=== PATIENT | female | born 1980 | race American Indian/Alaskan Native ===

== ENCOUNTER 2021-10-05 18:59 | Inpatient (IN) | payer SELFPAY ==
[2021-10-05] MEDS ORDERED: ASPIRIN 325 MG TAB PO ONE (19:49)
--- NOTE | 2021-10-05 20:17 | XRay Report ---
CHEST 2 VIEWS INDICATION / CLINICAL INFORMATION: CHEST PAIN. COMPARISON: None available. FINDINGS: SUPPORT DEVICES: None. HEART / MEDIASTINUM: No significant abnormality. LUNGS / PLEURA: No significant pulmonary or pleural abnormality. No pneumothorax. ADDITIONAL FINDINGS: No significant additional findings. IMPRESSION: 1. No acute findings. Signer Name: Aditya Aguilar MD Signed: 10/05/2021 8:13 PM Workstation Name: [id number]
[2021-10-05 20:19] LABS: Basophils # (Auto) 0.1 K/mm3 (0.0-0.1); Basophils % (Auto) 0.8 % (0.0-1.8); Eosinophils # (Auto) 0.1 K/mm3 (0.0-0.4); Eosinophils % (Auto) 1.9 % (0.0-4.3); Hematocrit 36.3 % (30.3-42.9); Hemoglobin 11.8 gm/dl (10.1-14.3); Lymphocytes # (Auto) 1.4 K/mm3 (1.2-5.4); Lymphocytes % (Auto) 20.5 % (13.4-35.0); Mean Corpuscular HGB Conc 33 % (30-34); Mean Corpuscular Volume 84 fl (79-97); Monocytes # (Auto) 0.5 K/mm3 (0.0-0.8); Monocytes % (Auto) 6.6 % (0.0-7.3); Platelet Count 222 K/mm3 (140-440); Red Blood Count 4.34 M/mm3 (3.65-5.03); Red Cell Distribution Width 13.8 % (13.2-15.2)
[2021-10-05 20:36] LABS: Alanine Aminotransferase 8 units/L (7-56); Albumin 4.1 g/dL (3.9-5); Blood Urea Nitrogen 12 mg/dL (7-17); Calcium 9.1 mg/dL (8.4-10.2); Hemolysis Index 6
[2021-10-05 20:53] LABS: BUN/Creatinine Ratio 17
[2021-10-06] MEDS ORDERED: ONDANSETRON 4 MG/2 ML INJ IV ONE (02:19)
[2021-10-06] MEDS ORDERED: MORPHINE 4 MG/1 ML INJ IV ONE (02:19)
--- NOTE | 2021-10-06 02:24 | Emergency Department Report ---
<JIMCHUY ZAPATA - Last Filed: 10/06/21 03:21> ED Chest Pain HPI - General Chief Complaint: Chest Pain Stated Complaint: CP/NAUSEA/SOB/HP Source: patient Mode of arrival: Ambulatory Limitations: No Limitations - History of Present Illness Initial Comments: Patient is a 41-year-old -Chinese female with a history of morbid obesity, hypertension and CHF who is not on medications presents to the ED with complaint of acute onset persistent shortness of breath at rest, left-sided chest pain that has been intermittent and persistent and that radiates to the mid posterior thoracic area with diaphoresis, nausea and vomiting for the last 3 days. Patient states that initially the pain and the symptoms were intermittent and mild but in the last 24 hours the symptoms have been more persistent and more frequent in occurrence. Patient states that she has not been evaluated by a geotechnical laboratory technician in over 2 years and that when she ran out of her medications, which she could not remember, she never went back to be evaluated and to have her medication renewed. Patient denies dizziness, syncope, fever, chills, cough, sore throat, neck pain, low back pain, abdominal pain and diarrhea, heavy lifting, fall or traumatic injury. MD Complaint: chest pain (Left-sided chest pain radiating to mid posterior thoracic area), other (Shortness of breath) -: Sudden, days(s) (3) Onset: during rest, during exertion Pain Location: left chest Pain Radiation: back (Mid posterior thoracic area) Severity: severe Severity scale (0 -10): 7 Quality: tightness, aching, pressure Consistency: intermittent Improves With: nothing Worsens With: nothing re: nausea, vomting, diaphoresis, dyspnea Other Symptoms: palpitations. denies: cough, fever, syncope, rash, acid taste in mouth, leg swelling, burping, other Treatments Prior to Arrival: aspirin Aspirin use within the Past 7 Days: (1) Yes - Related Data On Oral Contraceptives: No Previous Rx's Medication Instructions Recorded Last Taken Type AtorvaSTATin [Lipitor] 40 mg PO QHS #30 tablet 10/08/21 Unknown Rx Lisinopril/Hydrochlorothiazide 1 each PO DAILY #30 10/08/21 Unknown Rx [Zestoretic 10-12.5 mg Tablet] Pantoprazole [Protonix TAB] 40 mg PO QDAY #30 tablet 10/08/21 Unknown Rx Allergies Allergy/AdvReac Type Severity Reaction Status Date / Time No Known Allergies Allergy Verified 02/15/14 09:57 Heart Score - HEART Score History: Moderately suspicious EKG: Non-specific Age: < 45 Risk factors: > 3 risk factors or hx of atherosclerotic disease Troponin: < normal limit HEART Score: 4 - EKG Read Time Time EKG Completed: 19:11 EKG Read Time: 19:15 - Critical Actions Critical Actions: 4-6 pts:12-16.6% risk of adverse cardiac event. Should be admitted ED Past Medical Hx - Past Medical History Previous Medical History?: Yes Hx Hypertension: Yes Hx Congestive Heart Failure: Yes Hx Psychiatric Treatment: No Additional medical history: "enlarged heart" - Surgical History Additional Surgical History: c sections x 3 - Social History Substance Use Type: Alcohol - Medications Home Medications: Home Medications Medication Instructions Recorded Confirmed Last Taken Type AtorvaSTATin [Lipitor] 40 mg PO QHS #30 tablet 10/08/21 Unknown Rx Lisinopril/Hydrochlorothiazide 1 each PO DAILY #30 10/08/21 Unknown Rx [Zestoretic 10-12.5 mg Tablet] Pantoprazole [Protonix TAB] 40 mg PO QDAY #30 tablet 10/08/21 Unknown Rx ED Physical Exam - General Limitations: No Limitations General appearance: alert, in no apparent distress - Head Head exam: Present: atraumatic, normocephalic, normal inspection - Eye Eye exam: Present: normal appearance, PERRL, EOMI Pupils: Present: normal accommodation - ENT ENT exam: Present: normal exam, normal orophraynx, mucous membranes moist, TM's normal bilaterally, normal external ear exam - Neck Neck exam: Present: normal inspection, full ROM. Absent: tenderness - Respiratory Respiratory exam: Present: normal lung sounds bilaterally. Absent: respiratory distress, wheezes, rales, stridor, chest wall tenderness, accessory muscle use, prolonged expiratory, other - Cardiovascular Cardiovascular Exam: Present: normal rhythm, bradycardia, normal heart sounds. Absent: systolic murmur, diastolic murmur, rubs, gallop - GI/Abdominal GI/Abdominal exam: Present: soft, normal bowel sounds. Absent: tenderness, rebound, hyperactive bowel sounds, hypoactive bowel sounds, organomegaly, mass - Extremities Exam Extremities exam: Present: normal inspection, full ROM, normal capillary refill. Absent: tenderness - Back Exam Back exam: Present: normal inspection, full ROM. Absent: tenderness, CVA tenderness (R), CVA tenderness (L), muscle spasm, paraspinal tenderness - Neurological Exam Neurological exam: Present: alert, oriented X3, CN II-XII intact, normal gait, reflexes normal - Psychiatric Psychiatric exam: Present: normal affect, normal mood - Skin Skin exam: Present: warm, dry, intact, normal color. Absent: rash ROBERT score - Robert Score Age > 65: (0) No Aspirin use within the Past 7 Days: (1) Yes 3 or more CAD Risk Factors: (1) Yes 2 or more Angina events in past 24 hrs: (1) Yes Known CAD with more than 50% Stenosis: (0) No Elevated Cardiac Markers: (0) No ST Deviation Greater than 0.5mm: (0) No ROBERT Score: 3 ED Medical Decision Making - Lab Data Result diagrams: 10/05/21 19:53 10/05/21 19:53 - EKG Data EKG shows normal: sinus rhythm Rate: normal - EKG Data Interpretation: normal EKG 10/06/21 02:26 The EKG shows sinus bradycardia with a ventricular rate of [address] or T wave abnormalities. - Radiology Data Radiology results: report reviewed [facility] [address] [place] [address] XRay Report Signed Patient: JIA RUBALCAVA MR#: [id number] : 1980 Acct:[id number] Age/Sex: 41 / F ADM Date: 10/05/21 Loc: ED Attending Dr: Ordering Physician: ED MD [facility] Date of Service: 10/05/21 Procedure(s): XR chest routine 2V Accession Number(s): [id number] cc: ED MD [facility] Fluoro Time In Minutes: CHEST 2 VIEWS INDICATION / CLINICAL INFORMATION: CHEST PAIN. COMPARISON: None available. FINDINGS: SUPPORT DEVICES: None. HEART / MEDIASTINUM: No significant abnormality. LUNGS / PLEURA: No significant pulmonary or pleural abnormality. No pneumothorax. ADDITIONAL FINDINGS: No significant additional findings. IMPRESSION: 1. No acute findings. Signer Name: Aditya Aguilar MD Signed: 10/05/2021 8:13 PM Workstation Name: [id number] Transcribed By: FAREED Dictated By: AMARILIS AGUILAR MD Electronically Authenticated By: AMARILIS AGUILAR MD Signed Date/Time: 10/05/212012 DD/ 12 TD/TT: - Medical Decision Making This is a 41-year-old -Chinese female with a history of morbid obesity, hypertension and CHF who is not on medications presents to the ED with complaint of acute onset persistent shortness of breath at rest, left-sided chest pain that has been intermittent and persistent and that radiates to the mid posterior thoracic area with diaphoresis, nausea and vomiting for the last 3 days. Patient states that initially the pain and the symptoms were intermittent and mild but in the last 24 hours the symptoms have been more persistent and more frequent in occurrence. Patient states that she has not been evaluated by a geotechnical laboratory technician in over 2 years and that when she ran out of her medications, which she could not remember, she never went back to be evaluated and to have her medication renewed. In the ED, patient is alert and oriented x3 and is not in any distress. EKG shows sinus bradycardia rhythm with a ventricular rate of 50 bpm. Chest x-ray shows no acute cardiopulmonary abnormalities or pneumonitis. Lab test results were reviewed and are all nonactionable. Patient has score is 4 and a ROBERT of 3. Patient is noncompliant with medications and has not been able to be evaluated by her geotechnical laboratory technician in over 2 years despite history of CHF diagnosis. I paged and discussed the patient's case with the hospitalist physician Dr. Salcedo who admitted the patient to the hospital. Patient was admitt ed to the hospital for further chest pain rule out given her noncompliance. - Differential Diagnosis CHF; ACS; Pneumonia; dissection; anxiety; GERD; costochondritis ED Disposition Clinical Impression: Intermittent left-sided chest pain Acute exacerbation of CHF (congestive heart failure) Qualifiers: Heart failure type: unspecified Qualified Code(s): I50.9 - Heart failure, unspecified Disposition: ADMITTED INPATIENT Is pt being admited?: No Does the pt Need Aspirin: No Condition: Stable Time of Disposition: 02:28 <MICHELLE DEL RIO - Last Filed: 10/09/21 16:16> ED Review of Systems ROS: Stated complaint: CP/NAUSEA/SOB/HP Other details as noted in HPI ED Course Vital Signs 10/05/21 10/06/21 19:20 07:31 Temperature 99.0 F Pulse Rate 55 L 47 L Pulse Rate [ 44 L From Monitor] Respiratory 18 Rate Blood Pressure 176/102 O2 Sat by Pulse 100 100 Oximetry ED Medical Decision Making - Lab Data Result diagrams: 10/06/21 05:30 10/06/21 05:30 Critical care attestation.: If time is entered above; I have spent that time in minutes in the direct care of this critically ill patient, excluding procedure time. ED Disposition Is pt being admited?: Yes
[2021-10-06] MEDS ORDERED: MORPHINE 2 MG/1 ML INJ IV PRN (03:22)
[2021-10-06] MEDS ORDERED: ONDANSETRON 4 MG/2 ML INJ IV PRN (03:22)
[2021-10-06] MEDS ORDERED: ACETAMINOPHEN 325 MG TAB PO PRN ×2 (03:22→05:03)
[2021-10-06] MEDS ORDERED: NITROGLYCERIN 0.4 MG TAB SUBL SL PRN (05:03)
[2021-10-06] MEDS ORDERED: MORPHINE 4 MG/1 ML INJ IV PRN (05:03)
[2021-10-06] MEDS ORDERED: traMADol 50 MG TAB PO PRN (05:03)
--- NOTE | 2021-10-06 05:13 | History and Physical Report ---
History of Present Illness Date of examination: 10/06/21 Date of admission: 10/06/21 Chief complaint: Chest pain Shortness of breath History of present illness: 41-year-old female with history of hypertension and CHF, obesity who is not on medications was brought to the emergency room because of shortness of breath at rest, left-sided chest pain that has been intermittent and persistent and that radiates to the mid posterior thoracic area with diaphoresis, nausea and vomiting for the last 3 days. Patient states that initially the pain and the symptoms were intermittent and mild but in the last 24 hours the symptoms have been more persistent and more frequent in occurrence. Patient states that she has not been evaluated by a gold miner in over 2 years and that when she ran out of her medications, In the emergency room initial cardiac enzyme is negative troponin is 0.010. But patient BNP is 137.2. She will going to admit the patient and put the patient on chest pain as well as congestive heart failure pathway Past History Past Medical History: heart failure, hypertension, other (Enlarged her) Past Surgical History: Other ( x3) Social history: alcohol abuse Family history: hypertension Medications and Allergies Allergies Allergy/AdvReac Type Severity Reaction Status Date / Time No Known Allergies Allergy Verified 02/15/14 09:57 Home Medications Medication Instructions Recorded Confirmed Last Taken Type No Known Home Medications [No 02/16/14 02/16/14 Unknown History Reported Home Medications] Active Meds: Active Medications Acetaminophen (Acetaminophen 325 Mg Tab) 650 mg PO Q4H PRN PRN Reason: Pain MILD(1-3)/Fever >100.5/BECKER Morphine Sulfate (Morphine 2 Mg/1 Ml Inj) 2 mg IV Q4H PRN PRN Reason: Pain, Moderate (4-6) Ondansetron HCl (Ondansetron 4 Mg/2 Ml Inj) 4 mg IV Q8H PRN PRN Reason: Nausea And Vomiting Sodium Chloride (Sodium Chloride 0.9% 10 Ml Flush Syringe) 10 ml IV BID DUGLAS Review of Systems All systems: negative Cardiovascular: chest pain, orthopnea, shortness of breath, dyspnea on exertion, paroxysmal nocturnal dyspnea Gastrointestinal: nausea, vomiting Exam - Constitutional Vitals: Temp Pulse Resp BP Pulse Ox 99.0 F 55 L 18 176/102 100 10/05/21 19:20 10/05/21 19:20 10/05/21 19:20 10/05/21 19:20 10/05/21 19:20 General appearance: Present: no acute distress, well-nourished - EENT Eyes: Present: PERRL ENT: hearing intact, clear oral mucosa - Neck Neck: Present: supple, normal ROM - Respiratory Respiratory effort: normal Respiratory: bilateral: diminished - Cardiovascular Heart Sounds: Present: S1 & S2. Absent: rub, click - Extremities Extremities: pulses symmetrical, No edema Peripheral Pulses: within normal limits - Abdominal General gastrointestinal: Present: soft, non-tender, non-distended, normal bowel sounds Female genitourinary: Present: normal - Integumentary Integumentary: Present: clear, warm, dry - Musculoskeletal Musculoskeletal: gait normal, strength equal bilaterally - Psychiatric Psychiatric: appropriate mood/affect, intact judgment & insight - Neurologic Neurologic: CNII-XII intact, moves all extremities HEART Score - HEART Score EKG: Non-specific Age: < 45 Risk factors: > 3 risk factors or hx of atherosclerotic disease Troponin: Troponin T < 0.010 ng/mL (0.00-0.029) 10/06/21 01:51 Troponin: < normal limit - Critical Actions Critical Actions: 4-6 pts:12-16.6% risk of adverse cardiac event. Should be admi tted Results - Labs CBC & Chem 7: 10/05/21 19:53 10/05/21 19:53 Labs: Laboratory Last Values WBC 7.0 K/mm3 (4.5-11.0) 10/05/21 19:53 RBC 4.34 M/mm3 (3.65-5.03) 10/05/21 19:53 Hgb 11.8 gm/dl (10.1-14.3) 10/05/21 19:53 Hct 36.3 % (30.3-42.9) 10/05/21 19:53 MCV 84 fl (79-97) 10/05/21 19:53 MCH 27 pg (28-32) L 10/05/21 19:53 MCHC 33 % (30-34) 10/05/21 19:53 RDW 13.8 % (13.2-15.2) 10/05/21 19:53 Plt Count 222 K/mm3 (140-440) 10/05/21 19:53 Lymph % (Auto) 20.5 % (13.4-35.0) 10/05/21 19:53 [place] % (Auto) 6.6 % (0.0-7.3) 10/05/21 19:53 Eos % (Auto) 1.9 % (0.0-4.3) 10/05/21 19:53 Baso % (Auto) 0.8 % (0.0-1.8) 10/05/21 19:53 Lymph # (Auto) 1.4 K/mm3 (1.2-5.4) 10/05/21 19:53 [place] # (Auto) 0.5 K/mm3 (0.0-0.8) 10/05/21 19:53 Eos # (Auto) 0.1 K/mm3 (0.0-0.4) 10/05/21 19:53 Baso # (Auto) 0.1 K/mm3 (0.0-0.1) 10/05/21 19:53 Seg Neutrophils % 70.2 % (40.0-70.0) H 10/05/21 19:53 Seg Neutrophils # 4.9 K/mm3 (1.8-7.7) 10/05/21 19:53 Sodium 136 mmol/L (137-145) L 10/05/21 19:53 Potassium 3.8 mmol/L (3.6-5.0) 10/05/21 19:53 Chloride 102.5 mmol/L (98-107) 10/05/21 19:53 Carbon Dioxide 24 mmol/L (22-30) 10/05/21 19:53 Anion Gap 13 mmol/L 10/05/21 19:53 BUN 12 mg/dL (7-17) 10/05/21 19:53 Creatinine 0.7 mg/dL (0.6-1.2) 10/05/21 19:53 Estimated GFR > 60 ml/min 10/05/21 19:53 BUN/Creatinine Ratio 17 % 10/05/21 19:53 Glucose 102 mg/dL (65-100) H 10/05/21 19:53 Calcium 9.1 mg/dL (8.4-10.2) 10/05/21 19:53 Total Bilirubin 0.60 mg/dL (0.1-1.2) 10/05/21 19:53 AST 20 units/L (5-40) 10/05/21 19:53 ALT 8 units/L (7-56) 10/05/21 19:53 Alkaline Phosphatase 76 units/L (35-129) 10/05/21 19:53 Troponin T < 0.010 ng/mL (0.00-0.029) 10/06/21 01:51 NT-Pro-B Natriuret Pep 137.2 pg/mL (0-450) 10/06/21 02:33 Total Protein 7.3 g/dL (6.3-8.2) 10/05/21 19:53 Albumin 4.1 g/dL (3.9-5) 10/05/21 19:53 Albumin/Globulin Ratio 1.3 % 10/05/21 19:53 - Imaging and Cardiology Chest x-ray: report reviewed Assessment and Plan VTE prophylaxis?: Chemical Plan of care discussed with patient/family: Yes - Patient Problems (1) Acute exacerbation of CHF (congestive heart failure) Current Visit: Yes Status: Acute Qualifiers: Heart failure type: unspecified Qualified Code(s): I50.9 - Heart failure, unspecified Plan to address problem: Admit the patient to the medical telemetry. Cardiac diet. Fluid restriction. Maintain input output. Lasix 40 mg IV every 12 hours. Echocardiogram. Cardiology evaluation (2) Intermittent left-sided chest pain Current Visit: Yes Status: Acute Plan to address problem: Aspirin 325 mg p.o. daily. Lipitor 40 mg p.o. daily. We do the serial cardiac enzymes. Echocardiogram. Cardiology evaluation (3) Hypertension Current Visit: Yes Status: Acute Plan to address problem: Hydralazine 10 mg IV every 6 hours as needed. We continue the home medication (4) Orthopnea Current Visit: Yes Status: Acute Plan to address problem: Oxygen per nasal cannula 3 L/min. DuoNeb by nebulizer every 4 hours as needed. Fluid restriction. Maintain input output. Lasix 40 mg IV every 12 hours. Echocardiogram. Cardiology evaluation (5) Shortness of breath at rest Current Visit: Yes Status: Acute Plan to address problem: Oxygen per nasal cannula 3 L/min. DuoNeb by nebulizer every 4 hours as needed. Fluid restriction. Maintain input output. Lasix 40 mg IV every 12 hours. Echocardiogram. Cardiology evaluation (6) DVT prophylaxis Current Visit: Yes Status: Acute Plan to address problem: Heparin 5000 units subcu every 12 hours for DVT prophylaxis. Pepcid 20 mg p.o. twice daily for GI prophylaxis. Patient is a full code
[2021-10-06 06:01] LABS: Blood Urea Nitrogen 9 mg/dL (7-17); Hemolysis Index 4
[2021-10-06 06:04] LABS: BUN/Creatinine Ratio 15
[2021-10-06 06:23] LABS: Basophils % (Auto) 0.4 % (0.0-1.8); Eosinophils # (Auto) 0.1 K/mm3 (0.0-0.4); Eosinophils % (Auto) 2.2 % (0.0-4.3); Hematocrit 36.9 % (30.3-42.9); Hemoglobin 11.9 gm/dl (10.1-14.3); Lymphocytes # (Auto) 1.3 K/mm3 (1.2-5.4); Mean Corpuscular HGB Conc 32 % (30-34); Mean Corpuscular Volume 85 fl (79-97); Monocytes # (Auto) 0.4 K/mm3 (0.0-0.8); Monocytes % (Auto) 7.3 % (0.0-7.3); Platelet Count 233 K/mm3 (140-440); Red Blood Count 4.37 M/mm3 (3.65-5.03)
--- NOTE | 2021-10-06 09:36 | Progress Note ---
Assessment and Plan Assessment and plan: --Acute exacerbation of CHF (congestive heart failure) Admit the patient to the medical telemetry. Cardiac diet. Fluid restriction. Maintain input output. Lasix 40 mg IV every 12 hours. Echocardiogram. Cardiology evaluation -- Intermittent left-sided chest pain Aspirin 325 mg p.o. daily. Lipitor 40 mg p.o. daily. Serial cardiac enzyme and EKG echocardiogram. LV function ejection fraction Cardiology evaluation --Bradycardia; symptomatic heart rate in 40s Denies chest pain, denies dizziness or lightheadedness Patient is not on any AV wyatt blocking medications Closely monitor closely monitor --Hypertension; controlled Continue current antihypertensives and as needed medications --Orthopnea Continue diuretics , input output monitoring , oxygen titrate O2 sats to more t yo 90% Cardiology following , follow echocardiogram for LV function ejection fraction --Shortness of breath at rest Oxygen per nasal cannula 3 L/min. DuoNeb by nebulizer every 4 hours as needed. Fluid restriction. Maintain input output. Lasix 40 mg IV every 12 hours. Echocardiogram. Cardiology evaluation -Morbidly obese; BMI 41.1 Advised diet modification, exercise as tolerated Weight reduction when you are medically stable May benefit from bariatric surgical weight reduction -DVT prophylaxis Heparin 5000 units subcu every 12 hours for DVT prophylaxis. Pepcid 20 mg p.o. twice daily for GI prophylaxis. --full CODE STATUS We will closely monitor the patient and adjust management as needed, Plan of care reviewed with the patient and her nurse Prolonged care inpatient ; 35 minutes Advance care planning; +35 Discussed with patient her condition, I discussed with the patient her tests and reports I discussed with the patient her diagnosis, informed the patient prognosis Also discussed with the patient that cardiology would evaluate her, treatment plan discussed Risks and complications discussed extensively and answered their questions Consultations and their recommendations discussed with the patient, family discharge plan when patient is medically stable was discussed She had some questions answered all of them Advance care plan total time 35 minutes History Interval history: I have seen and examined the patient at the bedside Patient's chart and medications reviewed Patient feels better complains of mild shortness of breath and nausea Vital signs reviewed Hospitalist Physical - Constitutional Vitals: Temp Pulse Resp BP Pulse Ox 97.2 F L 88 16 128/86 98 10/06/21 08:13 10/06/21 08:13 10/06/21 08:13 10/06/21 08:13 10/06/21 08:13 General appearance: Present: no acute distress, well-nourished, obese (Morbidly obese) - EENT Eyes: Present: PERRL, EOM intact - Neck Neck: Present: supple, normal ROM - Respiratory Respiratory effort: normal Respiratory: bilateral: diminished, negative: rales, rhonchi, wheezing - Cardiovascular Rhythm: regular Heart Sounds: Present: S1 & S2 - Extremities Extremities: no ischemia, No edema - Abdominal General gastrointestinal: soft, non-tender, non-distended, normal bowel sounds - Integumentary Integumentary: Present: clear, warm - Psychiatric Psychiatric: appropriate mood/affect, cooperative - Neurologic Neurologic: CNII-XII intact, moves all extremities HEART Score - HEART Score EKG: Non-specific Age: < 45 Risk factors: > 3 risk factors or hx of atherosclerotic disease Troponin: Troponin T < 0.010 ng/mL (0.00-0.029) 10/06/21 01:51 Troponin: < normal limit - Critical Actions Critical Actions: 4-6 pts:12-16.6% risk of adverse cardiac event. Should be admitted Results - Labs CBC & Chem 7: 10/06/21 05:30 10/06/21 05:30 Labs: Laboratory Last Values WBC 5.9 K/mm3 (4.5-11.0) 10/06/21 05:30 RBC 4.37 M/mm3 (3.65-5.03) 10/06/21 05:30 Hgb 11.9 gm/dl (10.1-14.3) 10/06/21 05:30 Hct 36.9 % (30.3-42.9) 10/06/21 05:30 MCV 85 fl (79-97) 10/06/21 05:30 MCH 27 pg (28-32) L 10/06/21 05:30 MCHC 32 % (30-34) 10/06/21 05:30 RDW 14.0 % (13.2-15.2) 10/06/21 05:30 Plt Count 233 K/mm3 (140-440) 10/06/21 05:30 Lymph % (Auto) 22.0 % (13.4-35.0) 10/06/21 05:30 [place] % (Auto) 7.3 % (0.0-7.3) 10/06/21 05:30 Eos % (Auto) 2.2 % (0.0-4.3) 10/06/21 05:30 Baso % (Auto) 0.4 % (0.0-1.8) 10/06/21 05:30 Lymph # (Auto) 1.3 K/mm3 (1.2-5.4) 10/06/21 05:30 [place] # (Auto) 0.4 K/mm3 (0.0-0.8) 10/06/21 05:30 Eos # (Auto) 0.1 K/mm3 (0.0-0.4) 10/06/21 05:30 Baso # (Auto) 0.0 K/mm3 (0.0-0.1) 10/06/21 05:30 Seg Neutrophils % 68.1 % (40.0-70.0) 10/06/21 05:30 Seg Neutrophils # 4.0 K/mm3 (1.8-7.7) 10/06/21 05:30 Sodium 138 mmol/L (137-145) 10/06/21 05:30 Potassium 4.2 mmol/L (3.6-5.0) 10/06/21 05:30 Chloride 104.5 mmol/L (98-107) 10/06/21 05:30 Carbon Dioxide 25 mmol/L (22-30) 10/06/21 05:30 Anion Gap 13 mmol/L 10/06/21 05:30 BUN 9 mg/dL (7-17) 10/06/21 05:30 Creatinine 0.6 mg/dL (0.6-1.2) 10/06/21 05:30 Estimated GFR > 60 ml/min 10/06/21 05:30 BUN/Creatinine Ratio 15 % 10/06/21 05:30 Glucose 97 mg/dL (65-100) 10/06/21 05:30 Calcium 9.0 mg/dL (8.4-10.2) 10/06/21 05:30 Total Bilirubin 0.60 mg/dL (0.1-1.2) 10/05/21 19:53 AST 20 units/L (5-40) 10/05/21 19:53 ALT 8 units/L (7-56) 10/05/21 19:53 Alkaline Phosphatase 76 units/L (35-129) 10/05/21 19:53 Troponin T < 0.010 ng/mL (0.00-0.029) 10/06/21 01:51 NT-Pro-B Natriuret Pep 137.2 pg/mL (0-450) 10/06/21 02:33 Total Protein 7.3 g/dL (6.3-8.2) 10/05/21 19:53 Albumin 4.1 g/dL (3.9-5) 10/05/21 19:53 Albumin/Globulin Ratio 1.3 % 10/05/21 19:53 Active Medications - Current Medications Current Medications: Generic Name Dose Route Start Last Admin Trade Name Freq PRN Reason Stop Dose Admin Acetaminophen 650 mg 10/06/21 05:03 Acetaminophen 325 Mg Tab PO Q6H PRN Pain, Mild (1-3) Aspirin 325 mg 10/07/21 10:00 Aspirin Ec 325 Mg Tab PO QDAY [facility] Atorvastatin Calcium 40 mg 10/06/21 22:00 Atorvastatin 40 Mg Tab PO QHS [facility] Furosemide 40 mg 10/06/21 06:00 Furosemide 40 Mg/4 Ml Inj IV BID@0600,1800 [facility] Heparin Sodium (Porcine) 5,000 unit 10/06/21 10:00 Heparin 5,000 Unit/1 Ml Vial SUB-Q Q12HR [facility] Morphine Sulfate 2 mg 10/06/21 05:03 Morphine 4 Mg/1 Ml Inj IV Q5MIN PRN Chest Pain unrelieved by NTG Nitroglycerin 0.4 mg 10/06/21 05:03 Nitroglycerin 0.4 Mg Tab Subl SL Q5M PRN Chest Pain Ondansetron HCl 4 mg 10/06/21 03:22 Ondansetron 4 Mg/2 Ml Inj IV Q8H PRN Nausea And Vomiting Pantoprazole Sodium 40 mg 10/06/21 10:00 Pantoprazole 40 Mg Tab PO QDAY [facility] Sodium Chloride 10 ml 10/06/21 04:00 Sodium Chloride 0.9% 10 Ml Flush Syringe IV BID [facility] Sodium Chloride 10 ml 10/06/21 05:03 Sodium Chloride 0.9% 10 Ml Flush Syringe IV PRN PRN LINE FLUSH Tramadol HCl 50 mg 10/06/21 05:03 Tramadol 50 Mg Tab PO Q6H PRN Pain, Moderate (4-6)
[2021-10-06] MEDS: HEPARIN 5,000 UNIT/1 ML VIAL SUB-Q SCH ×2 (10:34→21:28)
[2021-10-06] MEDS: FUROSEMIDE 40 MG/4 ML INJ IV SCH ×2 (10:34→21:29)
[2021-10-06] MEDS: PANTOPRAZOLE 40 MG TAB PO SCH (10:36)
[2021-10-06] MEDS: KETOROLAC 30 MG/1 ML INJ IV PRN ×2 (10:49→21:28)
--- NOTE | 2021-10-06 11:23 | Electrocardiograph Report ---
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
--- NOTE | 2021-10-06 11:41 | Consultation ---
History of Present Illness Consult date: 10/06/21 Consult reason: shortness of breath History of present illness: The patient is a 41-year-old woman with a history of chronic hypertension, for which she takes no medicine and does not see a doctor on a routine basis. She also reports that in 2005, following a she was diagnosed with an "enlarged" heart, for which she took medicines and followed with a dry ice maker for about a year. Since then, she has had no further cardiac follow-up and reported no cardiac symptoms. She presented to the hospital at this time with several days of shortness of breath and atypical chest pain. Chest pain is nonexertional, and described as a shooting pain across the left side of the chest. In the emergency room she was found to be severely hypertensive 176/102. She was evaluated and referred for admission. EKG is a sinus bradycardia 50, otherwise normal ECG. Serial troponin levels x3 were normal. Chest x-ray showed borderline cardiomegaly, but clear lung powers with no interstitial edema. Past History Past Medical History: hypertension, other (History of poorly documented "enlarged" heart) Past Surgical History: Other ( x3) Social history: alcohol abuse Family history: hypertension Medications and Allergies Allergies Allergy/AdvReac Type Severity Reaction Status Date / Time No Known Allergies Allergy Verified 02/15/14 09:57 Home Medications Medication Instructions Recorded Confirmed Last Taken Type No Known Home Medications [No 02/16/14 02/16/14 Unknown History Reported Home Medications] Active Meds: Active Medications Acetaminophen (Acetaminophen 325 Mg Tab) 650 mg PO Q6H PRN PRN Reason: Pain, Mild (1-3) Aspirin (Aspirin Ec 325 Mg Tab) 325 mg PO QDAY [facility] Atorvastatin Calcium (Atorvastatin 40 Mg Tab) 40 mg PO QHS [facility] Furosemide (Furosemide 40 Mg/4 Ml Inj) 40 mg IV BID@0600,1800 [facility] Last Admin: 10/06/21 10:34 Dose: 40 mg Heparin Sodium (Porcine) (Heparin 5,000 Unit/1 Ml Vial) 5,000 unit SUB-Q Q12HR [facility] Last Admin: 10/06/21 10:34 Dose: 5,000 unit Ketorolac Tromethamine (Ketorolac 30 Mg/1 Ml Inj) 15 mg IV Q8H PRN PRN Reason: Pain , Severe (7-10) Stop: 10/11/21 10:59 Last Admin: 10/06/21 10:49 Dose: 15 mg Morphine Sulfate (Morphine 4 Mg/1 Ml Inj) 2 mg IV Q5MIN PRN PRN Reason: Chest Pain unrelieved by NTG Last Admin: 10/06/21 10:14 Dose: 2 mg Nitroglycerin (Nitroglycerin 0.4 Mg Tab Subl) 0.4 mg SL Q5M PRN PRN Reason: Chest Pain Ondansetron HCl (Ondansetron 4 Mg/2 Ml Inj) 4 mg IV Q8H PRN PRN Reason: Nausea And Vomiting Pantoprazole Sodium (Pantoprazole 40 Mg Tab) 40 mg PO QDAY [facility] Last Admin: 10/06/21 10:36 Dose: 40 mg Sodium Chloride (Sodium Chloride 0.9% 10 Ml Flush Syringe) 10 ml IV BID [facility] Last Admin: 10/06/21 10:50 Dose: 10 ml Sodium Chloride (Sodium Chloride 0.9% 10 Ml Flush Syringe) 10 ml IV PRN PRN PRN Reason: LINE FLUSH Tramadol HCl (Tramadol 50 Mg Tab) 50 mg PO Q6H PRN PRN Reason: Pain, Moderate (4-6) Review of Systems Cardiovascular: chest pain, shortness of breath, no orthopnea, no palpitations, no rapid/irregular heart beat, no edema, no syncope, no lightheadedness Physical Examination Vital Signs Temp Pulse Resp BP Pulse Ox 99.0 F 55 L 18 176/102 100 10/05/21 19:20 10/05/21 19:20 10/05/21 19:20 10/05/21 19:20 10/05/21 19:20 General appearance: no acute distress HEENT: Positive: PERRL Neck: Positive: neck supple Cardiac: Positive: Reg Rate and Rhythm Lungs: Positive: Decreased Breath Sounds Neuro: Positive: Grossly Intact Abdomen: Positive: Soft Female genitourinary: deferred Skin: Positive: Clear Extremities: Absent: edema Results 10/06/21 05:30 10/06/21 05:30 Cardiac Enzymes 10/05/21 Range/Units 19:53 AST 20 (5-40) units/L CBC 10/05/21 10/06/21 Range/Units 19:53 05:30 WBC 7.0 5.9 (4.5-11.0) K/mm3 RBC 4.34 4.37 (3.65-5.03) M/mm3 Hgb 11.8 11.9 (10.1-14.3) gm/dl Hct 36.3 36.9 (30.3-42.9) % Plt Count 222 233 (140-440) K/mm3 Lymph # (Auto) 1.4 1.3 (1.2-5.4) K/mm3 [place] # (Auto) 0.5 0.4 (0.0-0.8) K/mm3 Eos # (Auto) 0.1 0.1 (0.0-0.4) K/mm3 Baso # (Auto) 0.1 0.0 (0.0-0.1) K/mm3 Comprehensive Metabolic Panel 10/05/21 10/06/21 Range/Units 19:53 05:30 Sodium 136 L 138 (137-145) mmol/L Potassium 3.8 4.2 (3.6-5.0) mmol/L Chloride 102.5 104.5 (98-107) mmol/L Carbon Dioxide 24 25 (22-30) mmol/L BUN 12 9 (7-17) mg/dL Creatinine 0.7 0.6 (0.6-1.2) mg/dL Glucose 102 H 97 (65-100) mg/dL Calcium 9.1 9.0 (8.4-10.2) mg/dL AST 20 (5-40) units/L ALT 8 (7-56) units/L Alkaline Phosphatase 76 (35-129) units/L Total Protein 7.3 (6.3-8.2) g/dL Albumin 4.1 (3.9-5) g/dL EKG interpretations - Telemetry EKG Rhythm: Sinus Bradycardia (At 50, otherwise normal ECG) Assessment and Plan - Patient Problems (1) Shortness of breath Current Visit: Yes Status: Acute Plan to address problem: Patient admitted with atypical chest pain and shortness of breath. Most significant clinical finding at this time is uncontrolled hypertension. In addition to hypertension control, echocardiogram will be recommended for left ventricular function assessment. Further cardiac management will depend on clinical course.
[2021-10-07] MEDS: FUROSEMIDE 40 MG/4 ML INJ IV SCH ×2 (06:16→17:17)
[2021-10-07] MEDS: ASPIRIN EC 325 MG TAB PO SCH (09:23)
[2021-10-07] MEDS: PANTOPRAZOLE 40 MG TAB PO SCH (09:23)
[2021-10-07] MEDS: HEPARIN 5,000 UNIT/1 ML VIAL SUB-Q SCH ×2 (09:23→21:57)
--- NOTE | 2021-10-07 11:01 | Progress Note ---
Assessment and Plan - Patient Problems (1) Shortness of breath Current Visit: Yes Status: Acute Plan to address problem: Patient admitted with atypical chest pain and shortness of breath. Most significant clinical finding on presentation was uncontrolled hypertension. BP is now better controlled, but on no significant antihypertensive therapy. Echocardiogram shows normal left ventricular systolic function, ejection fraction 60%. We will order a predischarge stress test for cardiac chest pain assessment. Subjective Date of service: 10/07/21 Principal diagnosis: Chest pain and shortness of breath Interval history: Patient has no new cardiac complaints, and BP appears currently well controlled without significant antihypertensive therapy. Echocardiogram was completed shows normal left ventricular chamber size and systolic function with ejection fraction 60%. Objective Vital Signs Temp Pulse Resp BP BP Pulse Ox 10/07/21 07:27 98.0 F 64 16 119/79 99 10/07/21 05:08 97.9 F 56 L 18 124/70 98 10/07/21 00:28 97.6 F 58 L 16 123/72 100 10/06/21 20:19 97.7 F 55 L 16 126/75 100 10/06/21 19:31 98 10/06/21 16:00 98.5 F 49 L 18 108/72 100 10/06/21 13:34 56 L - Physical Examination General: No Apparent Distress HEENT: Positive: PERRL Neck: Positive: neck supple Cardiac: Positive: Reg Rate and Rhythm Lungs: Positive: Decreased Breath Sounds Neuro: Positive: Grossly Intact Abdomen: Positive: Soft Skin: Positive: Clear Extremities: Absent: edema
--- NOTE | 2021-10-07 15:33 | Progress Note ---
Assessment and Plan The patient is a 41-year-old woman with a history of chronic hypertension, for which she takes no medicine and does not see a doctor on a routine basis. She presented to the hospital at this time with several days of shortness of breath and atypical chest pain. In the emergency room she was found to be severely hypertensive 176/102. EKG is a sinus bradycardia 50, otherwise normal ECG. Serial troponin levels x3 were normal. Chest x-ray showed borderline cardiomegaly, 2D echo showed preserved EF with mild concentric ventricular hype rtrophy. A/P --Acute exacerbation of diastolic CHF (congestive heart failure) Admit the patient to the medical telemetry. Cardiac diet. Fluid restriction. Maintain input output. Lasix 40 mg IV every 12 hours. Echocardiogram showed preserved EF. Cardiology following -- Intermittent left-sided chest pain Aspirin 325 mg p.o. daily. Lipitor 40 mg p.o. daily. Serial cardiac enzyme and EKG echocardiogram. LV function ejection fraction Cardiology recommended stress test for tomorrow --Bradycardia; symptomatic heart rate in 40s Denies chest pain, denies dizziness or lightheadedness Patient is not on any AV wyatt blocking medications Closely monitor closely monitor --Hypertension; controlled Continue current antihypertensives and as needed medications --Orthopnea Continue diuretics , input output monitoring , oxygen titrate O2 sats to more th an 90% Cardiology following , follow echocardiogram for LV function ejection fraction --Shortness of breath at rest Oxygen per nasal cannula 3 L/min. DuoNeb by nebulizer every 4 hours as needed. Fluid restriction. Maintain input output. Lasix 40 mg IV every 12 hours. Echocardiogram. Cardiology evaluation -Morbidly obese; BMI 41.1 Advised diet modification, exercise as tolerated Weight reduction when you are medically stable May benefit from bariatric surgical weight reduction -DVT prophylaxis Heparin 5000 units subcu every 12 hours for DVT prophylaxis. Pepcid 20 mg p.o. twice daily for GI prophylaxis. --full CODE STATUS We will closely monitor the patient and adjust management as needed, Plan of care reviewed with the patient and her nurse cardiology ordered stress test for tomorrow Subjective Date of service: 10/07/21 Principal diagnosis: Chest pain and shortness of breath Interval history: Patient seen and examined. Medical records and medication list reviewed. No acute event overnight noted by the RN. Patient denies any difficulty breathing. Patient is tolerating diet. She complains of intermittent left-sided chest pain Discussed plan of care at bedside with patient. Objective - Exam Narrative Exam: GENERAL: well-developed and morbidly obese -[place] female lying on bed appeared to be in no discomfort. HEENT: Normocephalic. Atraumatic. No conjunctival congestion or icterus. Patient has moist mucous membranes. NECK: Supple. Trachea midline. CHEST/LUNGS: Clear to auscultated bilaterally, breathing nonlabored. No wheezes crackles or rhonchi. HEART/CARDIOVASCULAR: Regular in rate and rhythm. S1 and S2 positive. ABDOMEN: Abdomen is soft, nontender. Patient has normal bowel sounds. SKIN: There is no rash. Warm and dry. NEURO: No focal motor deficit. Follows command. MUSCULOSKELETAL: No joint effusion or tenderness. EXTRIMITY: No edema, no cyanosis or clubbing. PSYCH: Cooperative. - Constitutional Vitals: Vital Signs - 12hr 10/07/21 10/07/21 10/07/21 05:08 07:27 11:00 Temperature 97.9 F 98.0 F Pulse Rate 56 L 64 Respiratory 18 16 18 Rate Blood Pressure 119/79 Blood Pressure 124/70 [Right] O2 Sat by Pulse 98 99 99 Oximetry 10/07/21 13:46 Temperature 97.9 F Pulse Rate 72 Respiratory 18 Rate Blood Pressure 130/87 Blood Pressure [Right] O2 Sat by Pulse 100 Oximetry - Labs CBC & Chem 7: 10/06/21 05:30 10/06/21 05:30 HEART Score - HEART Score EKG: Non-specific Age: < 45 Risk factors: > 3 risk factors or hx of atherosclerotic disease Troponin: Troponin T < 0.010 ng/mL (0.00-0.029) 10/06/21 11:30 Troponin: < normal limit - Critical Actions Critical Actions: 4-6 pts:12-16.6% risk of adverse cardiac event. Should be admitted
[2021-10-07] MEDS: KETOROLAC 30 MG/1 ML INJ IV PRN (21:57)
[2021-10-08] MEDS: FUROSEMIDE 40 MG/4 ML INJ IV SCH (05:57)
[2021-10-08] MEDS ORDERED: REGADENOSON 0.4 MG/5 ML INJ IV ONE (07:19)
[2021-10-08 10:39] VITALS: BP 126/88
[2021-10-08] MEDS: PANTOPRAZOLE 40 MG TAB PO SCH (11:47)
[2021-10-08] MEDS: ASPIRIN EC 325 MG TAB PO SCH (11:47)
[2021-10-08] MEDS: HEPARIN 5,000 UNIT/1 ML VIAL SUB-Q SCH (11:47)
--- NOTE | 2021-10-08 13:11 | Nuclear Medicine Report ---
APPROVED REPORT Exam: Nuclear Stress Test Indication: Chest pain [facility] Ht: 5 ft 8 in Wt: 270 lbs BSA: 2.32 m2 HR: 69 bpmBP: 116/80 mmHgBMI: 41.04 Stress Test Details Stress Test: Exercise stress testing was performed using a Emmanuel protocol. HR Resting HR: 69 bpm Max HR Achieved: 159 bpm Max Heart Rate (APMHR): 179 bpm Target HR (85% APMHR): 152 bpm % of APMHR: 88 Recovery HR: 138 bpm BP Resting BP: 116/80 mmHg Max BP: 145/95 mmHg Recovery BP: 126/88 mmHg ECG Resting ECG: Sinus Rhythm Stress ECG: Sinus Tachycardia ST Change: None Arrhythmia: None Recovery ECG: Sinus Rhythm Recovery Arrhythmia: None Clinical Reason for Termination: Maximal effort Stress Symptoms: None Exercise duration: 6 min 0 sec Exercise capacity: 7.2 METs Scale: -2 Stress ECG Conclusion No chest pain, no ST changes with exercise, myocardial perfusion images are pending. NM EXAM: Myocardial Perfusion REST/STRESS Imaging Protocol: Rest Tc-99m/Stress Tc-99m 1 day Resting Data Rest SPECT myocardial perfusion imaging was performed in supine position 45 minutes following the intravenous injection of 10 mCi of Tc-99m Myoview. Time of rest injection: 0730 Exercise Stress At peak stress, the patient was injected intravenously with 28mCi of Tc-99m Myoview. Time of stress injection: 10:10:46 Gated Stress SPECT was performed 15 minutes after stress injection. The images were gated to evaluate regional wall motion and calculate left ventricular ejection fraction. Study Quality Study: excellent Lung Uptake: Normal Study Data TID = 1.06. Perfusion Wall Motion The rest and stress images show normal left ventricular wall motion. Left ventricular ejection fraction 63%. Nuclear Conclusion ECG Findings: negative for ischemia Clinical Findings: negative for ischemia Nuclear Findings: negative for ischemia Exercise Capacity: normal Left Ventricular Function: normal Risk Study: low Normal exercise thallium stress test, normal left ventricular systolic function, ejection fraction 63%. Normal study. Conclusion No chest pain, no ST changes with exercise, myocardial perfusion images are pending.
--- NOTE | 2021-10-08 13:12 | Event Note ---
Date: 10/08/21 Patient underwent exercise thallium stress test, exercised for 6 minutes of Emmanuel apical, no chest pain and no ST changes. Myocardial perfusion images were normal, normal left ventricular systolic function, ejection fraction 63%. Cardiac chest pain work-up is completed, stable for cardiac discharge. Continue risk factor modification as previously outlined.
--- NOTE | 2021-10-08 14:39 | Discharge Summary ---
Providers - Providers Date of Admission: 10/06/21 06:47 Date of discharge: 10/08/21 Attending physician: PALLAVI VERDE 10/06/21 Consult to Cardiac Rehabilitation [CONS] Routine Reason For Exam: Phase I 10/06/21 05:03 Consult to Cardiology [CONS] Routine Consulting Provider: JOSE GARCIA Reason For Exam: chf Primary care physician: KIRBY TOM Hospitalization Condition: Stable Pertinent studies: MPI stress test, 2D echo, chest x-ray Hospital course: The patient is a 41-year-old woman with a history of chronic hypertension, for which she takes no medicine and does not see a doctor on a routine basis. She presented to the hospital at this time with several days of shortness of breath and atypical chest pain. In the emergency room she was found to be severely hypertensive 176/102. EKG is a sinus bradycardia 50, otherwise normal ECG. Serial troponin levels x3 were normal. Chest x-ray showed borderline cardiomegaly, 2D echo showed preserved EF with mild concentric ventricular hypertrophy. Patient underwent exercise thallium stress test, exercised for 6 minutes of Emmanuel apical, no chest pain and no ST changes. Myocardial perfusion images were normal, normal left ventricular systolic function, ejection fraction 63%. Cardiac chest pain work-up is completed, stable for cardiac discharge. cardiology recommended to outpt followup. Disposition: 30 STILL A PATIENT Final Discharge Diagnosis (Prints w/discharge instructions): --Acute exacerbation of diastolic CHF (congestive heart failure). -- Intermittent left- sided chest pain, atypical, likely from GERD. --Bradycardia, resolved. --HTN, controlled. ---Morbidly obese; BMI 41.1 Time spent for discharge: 34 minutes Core Measure Documentation - Palliative Care Palliative Care/ Comfort Measures: Not Applicable - Core Measures Any of the following diagnoses?: none Exam - Physical Exam Narrative exam: GENERAL: well-developed and morbidly obese -[place]onese female lying on bed appeared to be in no discomfort. HEENT: Normocephalic. Atraumatic. No conjunctival congestion or icterus. Patient has moist mucous membranes. NECK: Supple. Trachea midline. CHEST/LUNGS: Clear to auscultated bilaterally, breathing nonlabored. No wheezes crackles or rhonchi. HEART/CARDIOVASCULAR: Regular in rate and rhythm. S1 and S2 positive. ABDOMEN: Abdomen is soft, nontender. Patient has normal bowel sounds. SKIN: There is no rash. Warm and dry. NEURO: No focal motor deficit. Follows command. MUSCULOSKELETAL: No joint effusion or tenderness. EXTRIMITY: No edema, no cyanosis or clubbing. PSYCH: Cooperative. - Constitutional Vitals: Temp Pulse Resp BP Pulse Ox 97.4 F L 84 18 126/88 98 10/08/21 12:15 10/08/21 03:50 10/08/21 11:00 10/08/21 09:59 10/08/21 11:00 Plan Activity: advance as tolerated Weight Bearing Status: Weight Bear as Tolerated Diet: low fat, low salt Follow up with: KIRBY TOM MD [Primary Care Provider] - 3-5 Days ANTONIO RAIN MD [Staff Physician] - 7 Days Prescriptions: AtorvaSTATin [Lipitor] 40 mg PO QHS #30 tablet Pantoprazole [Protonix TAB] 40 mg PO QDAY #30 tablet Lisinopril/Hydrochlorothiazide [Zestoretic 10-12.5 mg Tablet] 1 each PO DAILY #30
== END 2021-10-08 16:41 | disposition home or self-care (01) | DRG 291 ==
LOC: ED 18:59 → 4A 10-06 06:47
PROVIDERS: ADMIT Hospitalist; ATTEND Internal Medicine
DX: I11.0 Hypertensive heart disease with heart failure (principal); I50.33 Acute on chronic diastolic (congestive) heart failure; Z68.41 Body mass index [BMI] 40.0-44.9, adult; E66.01 Morbid (severe) obesity due to excess calories; R00.1 Bradycardia, unspecified; K21.9 Gastro-esophageal reflux disease without esophagitis; Z82.49 Family history of ischemic heart disease and other diseases of the circulatory system; Z79.899 Other long term (current) drug therapy
CPT/HCPCS: 36415; 71046; 78452; 80048; 80053; 83880; 84484; 85025; 93005; 93017; 93306; 96374; 96375; 99285; G0378; A9502; C8929; J1644; J1885; J1940; J2270; J2405

== ENCOUNTER 2021-12-25 14:54 | Emergency (ER) | payer SELFPAY ==
[2021-12-25 16:16] VITALS: BP 125/75
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
== END 2021-12-25 20:00 | disposition left against medical advice (07) ==
LOC: ED 14:54
DX: Z04.1 Encounter for examination and observation following transport accident (principal); Z53.21 Procedure and treatment not carried out due to patient leaving prior to being seen by health care provider; V89.2XXA Person injured in unspecified motor-vehicle accident, traffic, initial encounter; Y93.89 Activity, other specified; Y92.89 Other specified places as the place of occurrence of the external cause; Y99.8 Other external cause status
CPT/HCPCS: 72040; 72100